=== PATIENT | male | born 1990 | race Caucasian/White ===

== ENCOUNTER 2019-05-14 14:50 | Emergency (ER) | payer OTHER, SELFPAY ==
[2019-05-14 15:20] VITALS: BP 106/70; PULSE 66; RESP 18; TEMP 36.7; O2SAT 98
[2019-05-14 17:19] VITALS: BP 123/71; PULSE 60; RESP 18; TEMP 36.9; O2SAT 100
[2019-05-14] MEDS: TET,DIPH,PERTUSS(ACELL),VAC/PF 0.5 ML SYRINGE IM (17:23)
--- NOTE | 2019-05-14 17:44 | ED_ITS ---
HPI - Skin/Abscess/Foreign Bdy <MASHA Oliveros - Last Filed: 05/14/19 22:38> General Chief complaint: Skin/Abscess/Foreign Body Stated complaint: wound right wrist from chainsaw Time Seen by Provider: 05/14/19 17:14 Source: patient Mode of arrival: ambulatory Limitations: no limitations History of Present Illness HPI narrative: 29-year-old healthy male presents emergency department today complaining of a small laceration to his right forearm stating that he cut it on a chain saw at work. He states bleeding was immediately controlled, he is unsure when his last tetanus was. He denies any numbness, tingling, limited range of motion, nausea, vomiting, fevers, chills, pus discharge, or syncope. Related Data Allergies Allergy/AdvReac Type Severity Reaction Status Date / Time No Known Drug Allergies Allergy Verified 05/14/19 15:22 Review of Systems <MASHA Oliveros - Last Filed: 05/14/19 22:38> Review of Systems Narrative: Insert are REVIEW OF SYSTEMS: GENERAL: Denies fever or chills. HENT: Denies head trauma. EYE: Denies double vision or vision loss. CARDIOVASCULAR: Denies syncope. MUSCULOSKELETAL: Denies weakness, or deformities. INTEGUMENTARY: Complains of to right forearm laceration, see HPI. NEURO: Denies numbness or tingling. PFSH <MASHA Oliveros - Last Filed: 05/14/19 22:38> Medical History No significant medical problems (Acute) Social History Smoking Status: Current every day smoker Social History Smoking Status: Current every day smoker Exam <MASHA Oliveros - Last Filed: 05/14/19 22:38> Initial Vital Signs Initial Vital Signs: Vital Signs Temperature 98.1 F 05/14/19 15:20 Pulse Rate 66 05/14/19 15:20 Respiratory Rate 18 05/14/19 15:20 Blood Pressure 106/70 05/14/19 15:20 Pulse Oximetry 98 05/14/19 15:20 PHYSICAL EXAMINATION: GENERAL: Well groomed, alert, and cooperative. Answers questions promptly and appropriately. Vital signs noted. HENT: Normocephalic, atraumatic. RESPIRATORY: Normal respiratory rate, trachea midline, airway patent. No stridor, nasal flaring or accessory muscle use. MUSCULOSKELETAL: Normal gait and coordination. Equal tone and mass bilaterally. Equal strength to upper extremities, full range of motion to right elbow, wrist, and fingers. EXTREMITIES: CMS intact. Moves all extremities. SKIN: Warm, dry, soft, appropriate color for ethnicity. 2.5cm superficial laceration to ulnar aspect of right forearm. Wound bed pink without subcu tissue visualization. Wound explored, no concern for foreign body. Bleeding controlled. No surrounding erythema. NEURO: Alert and Oriented X 3. Good coordination. PSYCH: Appropriate affect and mood. <Shayy Miller MD - Last Filed: 05/17/19 01:59> Initial Vital Signs Initial Vital Signs: Vital Signs Temperature 98.1 F 05/14/19 15:20 Pulse Rate 66 05/14/19 15:20 Respiratory Rate 18 05/14/19 15:20 Blood Pressure 106/70 05/14/19 15:20 Pulse Oximetry 98 05/14/19 15:20 Procedures <MASHA Oliveros - Last Filed: 05/14/19 22:38> Laceration Repair Right Forearm: Site: upper extremity Side (If applicable): right Size (cm): 2.5 Description: linear Depth: simple, single layer Skin layer closed with: steri-strips Course <MASHA Oliveros - Last Filed: 05/14/19 22:38> Course Course Narrative: Simple laceration repaired with glue and then extensively irrigated with normal saline, tetanus updated. Orders Ordered: Discontinued Medications Diphtheria/Tetanus/Acell Pertussis (Adacel) 0.5 ml IM .ONCE ONE Stop: 05/14/19 15:23 Last Admin: 05/14/19 17:23 Dose: 0.5 ml Documented by: SEGUNDO Vital Signs Vital signs: Vital Signs - 8 hr 05/14/19 15:20 05/14/19 17:19 Temperature 98.1 F 98.4 F Pulse Rate 66 60 Respiratory Rate 18 18 Blood Pressure 106/70 Blood Pressure [Left Arm] 123/71 Pulse Oximetry 98 100 <Shayy Miller MD - Last Filed: 05/17/19 01:59> Orders Ordered: Discontinued Medications Diphtheria/Tetanus/Acell Pertussis (Adacel) 0.5 ml IM .ONCE ONE Stop: 05/14/19 15:23 Last Admin: 05/14/19 17:23 Dose: 0.5 ml Documented by: SEGUNDO Vital Signs Vital signs: Vital Signs - 8 hr 05/14/19 15:20 05/14/19 17:19 Temperature 98.1 F 98.4 F Pulse Rate 66 60 Respiratory Rate 18 18 Blood Pressure 106/70 Blood Pressure [Left Arm] 123/71 Pulse Oximetry 98 100 MDM - Skin/Abscess/Foreign Bdy <MaydaMASHA Aguilar - Last Filed: 05/14/19 22:38> Medical Records Attestation: I reviewed the patient's medical records. Lab Data Attestation: I reviewed the patient's lab results. [facility] Narrative Medical decision making narrative: Simple laceration repair with glue- without signs of infection, tetanus updated strict return precautions given and follow- up instructions discussed.. Discharge Plan Departure Patient Disposition: Home Clinical Impression: Laceration Discharge Date/Time: 05/14/19 18:09 Instructions: DI for Laceration Repair Activity Restrictions/Additional Instructions: Thank you for entrusting me with your care today. As discussed, I have placed glue on your laceration, this will fall off on its own, do not pick at it. Additionally, do not place Neosporin or bacitracin to the area as this will dissolve the glue. The Steri-Strips will fall off on their own as well. Please monitor for signs of infection such as increased redness, pus drainage, fevers, chills--if this occurs please return emergency department or walk-in clinic. Return emergency department if he develops chest pain, shortness of breath, or syncope.
== END 2019-05-14 18:09 | disposition home or self-care (01) ==
PROVIDERS: Emergency Provider Nurse Practitioner
DX: S51.811A Laceration without foreign body of right forearm, initial encounter (principal); Z23 Encounter for immunization; Y99.0 Civilian activity done for income or pay
CPT/HCPCS: 90471; 99282; 90715